=== PATIENT | female | born 1995 | race Caucasian/White ===

== ENCOUNTER 2021-10-07 03:16 | Outpatient (REF) | payer BC, SELFPAY ==
[2021-10-08 13:39] LABS: COVID-19 RT-PCR UVMMC Result Negative (Negative)
== END 2021-10-07 03:17 | disposition home or self-care (01) ==
LOC: LBN 03:16
PROVIDERS: Visit Provider Nurse Practitioner Family
DX: Z20.822 Contact with and (suspected) exposure to COVID-19 (principal); J02.9 Acute pharyngitis, unspecified
CPT/HCPCS: U0003

== ENCOUNTER 2022-09-07 12:37 | Outpatient (REF) | payer OTHER, SELFPAY ==
--- NOTE | 2022-09-07 11:40 | PAPFT_PTH ---
PATIENT: Za Krueger LOC: [facility] U#:[id number] AGE/SX: 27/F ROOM: RE09/07/[address]: María Elena Gan : 1995 BED: DIS: 09/07/2022 SPEC #: [id number] RECD: 09/07/22 17:43 STATUS: MELANIE RECasey #: [id number] LIDIA: 09/07/22 11:[address]: María Elena Gan DEPT: [facility] Cytology RECD BY: Jojo Ortiz Tissues: 1 - CX/ENDOCX FOR PAP SMEARS Procedures: PAP THIN PREP/[facility] Screening Comments:
== END 2022-09-07 12:38 | disposition home or self-care (01) ==
LOC: NCHCN 12:37
PROVIDERS: Visit Provider Nurse Practitioner Family
DX: Z00.00 Encounter for general adult medical examination without abnormal findings (principal); Z12.4 Encounter for screening for malignant neoplasm of cervix
CPT/HCPCS: 88142

== ENCOUNTER 2024-04-04 13:56 | Outpatient (REF) | payer OTHER, SELFPAY | END 2024-04-04 13:57 | disposition home or self-care (01) | LOC: LBN 13:56 | PROVIDERS: Visit Provider Physician Assistant Medical | DX: J02.9 Acute pharyngitis, unspecified (principal) | CPT/HCPCS: 87070 ==

== ENCOUNTER 2025-02-22 16:20 | Outpatient (REF) | payer OTHER, SELFPAY ==
--- NOTE | 2025-02-22 12:50 | PAPFT_PTH ---
PATIENT: Za Krueger LOC: [facility] U#:[id number] AGE/SX: 29/F ROOM: RE02/22/[address]: Yumi Hou : 1995 BED: DIS: 02/22/2025 SPEC #: [id number] RECD: 02/25/25 17:44 STATUS: SOULatisha REQ #: [id number] LIDIA: 02/22/25 12:[address]: Yumi Hou DEPT: [facility] Cytology RECD BY: Jojo Ortiz ENTERED: 02/25/25 17:45 SP TYPE: PAPFT OTHR DR: Unknown,Unknown Tissues: 1 - CX/ENDOCX FOR PAP SMEARS Procedures: PAP THIN PREP/[facility] Screening Comments: [id number]
== END 2025-02-22 16:21 | disposition home or self-care (01) ==
LOC: NCHCN 16:20
PROVIDERS: Visit Provider Nurse Practitioner Family
DX: Z12.4 Encounter for screening for malignant neoplasm of cervix (principal)
CPT/HCPCS: 88142

== ENCOUNTER 2025-08-08 18:05 | Outpatient (REF) | payer OTHER, SELFPAY ==
[2025-08-09 18:40] LABS: HIV-1/2 Ag & Ab Screen Negative (Negative)
[2025-08-09 19:05] LABS: HBs Antibody, Quant 10.6 mIU/mL (See Note); Hepatitis B Surface Ab Positive (See Note)
[2025-08-09 19:07] LABS: Hepatitis C Ab w Rflx HCV PCR Negative (Negative)
== END 2025-08-08 18:06 | disposition home or self-care (01) ==
LOC: LBN 18:05
PROVIDERS: PCP Nurse Practitioner Family; Visit Provider Family Medicine
DX: W46.0XXA Contact with hypodermic needle, initial encounter (principal)
CPT/HCPCS: 86706; 86803; 87340; 87389